=== PATIENT | female | born 1985 | race African-American/Black ===

== ENCOUNTER 2020-12-03 07:00 | Inpatient (IN) | payer OTHER ==
[2020-12-03] MEDS ORDERED: PROMETHAZINE HCL 25 MG/1 ML VIAL IVPUSH ONE (07:43)
[2020-12-03] MEDS ORDERED: BUTORPHANOL TARTRATE 1 MG/ML VIAL IVPUSH PRN (07:43)
[2020-12-03] MEDS ORDERED: OXYTOCIN 30 UNITS in 0.9% NS 30 UNIT/500 ML INFUS.BAG IVPB SCH (07:45)
[2020-12-03] MEDS ORDERED: DEXTROSE 5%-LACTATED RINGERS 1,000 ML IV SCH (08:00)
[2020-12-03 08:32] VITALS: BMI 23.9
[2020-12-03] MEDS ORDERED: OXYTOCIN 30 UNITS in 0.9% NS 30 UNIT/500 ML INFUS.BAG IVPB ONE (08:47)
[2020-12-03 09:04] LABS: INR 0.87 (0.83-1.09); PROTHROMBIN TIME (PATIENT) 10.6 SEC (9.7-13.0)
[2020-12-03 09:07] LABS: ACTIVATED PTT 24.9 SECONDS (25.2-36.5)
[2020-12-03 09:13] LABS: BASO % 0.5 % (0-2.0); EOS % 1.2 % (0-4.5); HEMATOCRIT 32.6 % (32.4-45.2); HEMOGLOBIN 10.7 GM/dL (10.7-15.3); LYMPH % 34.5 % (8-40); MCH 26.5 pg (25.7-33.7); MCHC 32.7 g/dl (32.0-36.0); MEAN CELL VOLUME 81.1 fl (80-96); MEAN PLT VOLUME 8.2 fl (7.5-11.1); MONO % 7.8 % (3.8-10.2); PLATELET COUNT 297 10^3/uL (134-434); RBC 4.02 M/mm3 (3.60-5.2); RDW 13.6 % (11.6-15.6); WHITE BLOOD COUNT 6.9 K/mm3 (4.0-10.0)
[2020-12-03 09:17] LABS: CALCIUM 9.1 mg/dL (8.5-10.1)
[2020-12-03 09:18] LABS: BLOOD UREA NITROGEN 10.8 mg/dL (7-18)
[2020-12-03 09:21] LABS: CREATININE 0.6 mg/dL (0.55-1.3)
[2020-12-03] MEDS ORDERED: AMPICILLIN - 2 GM in SODIUM CHLORIDE 100 ML IVPB ONE (10:00)
[2020-12-03] MEDS ORDERED: AMPICILLIN SODIUM 2 GM VIAL ONE (10:00)
[2020-12-03] MEDS ORDERED: AMPICILLIN SODIUM 1 GM VIAL ONE ×2 (13:51→17:48)
[2020-12-03] MEDS: AMPICILLIN - 1 GM in SODIUM CHLORIDE 100 ML IVPB SCH ×3 (14:00→23:56)
[2020-12-03] MEDS ORDERED: PCA PUMP NR ONE (17:55)
[2020-12-03] MEDS ORDERED: FENTANYL/BUPIVACAINE/NS/PF - PCEA - 50 ML DISP.SYRIN EP ONE (17:55)
[2020-12-03] MEDS ORDERED: NALOXONE HCL 0.4 MG/ML VIAL IVPUSH PRN (18:31)
[2020-12-03] MEDS ORDERED: FENTANYL/BUPIVACAINE/NS/PF - PCEA - 50 ML DISP.SYRIN EP SCH (18:45)
[2020-12-03] MEDS ORDERED: LIDOCAINE HCL 1% PRESERVATIVE FREE - 30ML VIAL ONE (19:15)
[2020-12-03] MEDS ORDERED: OXYTOCIN 20 UNITS in 0.9% NS 20 UNIT/1,000 ML INFUS.BAG IV ONE (19:15)
[2020-12-03 20:59] LABS: CORD BASE EXCESS -4.3 mmol/L (0-2); CORD HCO3 25.5 mmHg (20-29); CORD PCO2 67.4 mmHg (30-78); CORD pH 7.195 (7.14-7.44)
[2020-12-03 21:00] LABS: CORD BASE EXCESS -6.5 mmol/L (0-2); CORD HCO3 20.1 mmHg (20-29); CORD PCO2 43.5 mmHg (30-78); CORD pH 7.282 (7.14-7.44)
[2020-12-04] MEDS: ACETAMINOPHEN 325 MG TABLET (FP) PO PRN ×2 (10:15→20:48)
[2020-12-04] MEDS: IBUPROFEN 600 MG TABLET (FP) PO PRN ×2 (10:25→20:47)
[2020-12-05] MEDS: IBUPROFEN 600 MG TABLET (FP) PO PRN ×2 (01:14→08:05)
[2020-12-05] MEDS: ACETAMINOPHEN 325 MG TABLET (FP) PO PRN ×2 (01:15→08:05)
[2020-12-05 09:58] VITALS: BP 94/61; PULSE 83; TEMP 97.6
[2020-12-05 10:14] LABS: BASO % 0.5 % (0-2.0); EOS % 1.9 % (0-4.5); HEMATOCRIT 30.9 % (32.4-45.2); LYMPH % 30.8 % (8-40); MCH 26.6 pg (25.7-33.7); MCHC 32.4 g/dl (32.0-36.0); MEAN CELL VOLUME 81.9 fl (80-96); MEAN PLT VOLUME 8.8 fl (7.5-11.1); MONO % 5.6 % (3.8-10.2); NEUT % 61.2 % (42.8-82.8); PLATELET COUNT 280 10^3/uL (134-434); RBC 3.77 M/mm3 (3.60-5.2); RDW 13.9 % (11.6-15.6); WHITE BLOOD COUNT 8.7 K/mm3 (4.0-10.0)
== END 2020-12-05 12:10 | disposition home or self-care (01) | DRG 560 ==
LOC: JLDR 07:00 → J3W 21:37
PROVIDERS: ADMIT Obstetrics & Gynecology; ATTEND Obstetrics & Gynecology
PROC: 10E0XZZ Delivery of Products of Conception, External Approach (ICD-10-PCS; principal; 2020-12-03)
PROC: 3E033VJ Introduction of Other Hormone into Peripheral Vein, Percutaneous Approach (ICD-10-PCS; 2020-12-03)
PROC: 10H073Z Insertion of Monitoring Electrode into Products of Conception, Via Natural or Artificial Opening (ICD-10-PCS; 2020-12-03)
DX: O69.81X0 Labor and delivery complicated by cord around neck, without compression, not applicable or unspecified (principal); Z3A.39 39 weeks gestation of pregnancy; Z37.0 Single live birth
CPT/HCPCS: 36415; 36600; 59409; 80048; 82803; 85025; 85610; 85730; 86780; 86850; 86900; 86901; C9803; U0003; U0005